=== PATIENT | female | born 1990 | race African-American/Black ===

== ENCOUNTER 2020-09-23 00:34 | Emergency (ER) | payer OTHER ==
[~2020-09-23] VITALS: Ht 167.6 cm; Wt 114.0 kg
[2020-09-23] MEDS ORDERED: KETOROLAC 30MG/ML VIAL IM ONE (01:00)
[2020-09-23 01:26] VITALS: BP 127/83
== END 2020-09-23 02:49 | disposition left against medical advice (07) ==
LOC: ER 00:34
DX: S80.12XA Contusion of left lower leg, initial encounter (principal); S80.11XA Contusion of right lower leg, initial encounter; M79.632 Pain in left forearm; M25.561 Pain in right knee; V49.59XA Passenger injured in collision with other motor vehicles in traffic accident, initial encounter; Y93.89 Activity, other specified; Y92.488 Other paved roadways as the place of occurrence of the external cause; R03.0 Elevated blood-pressure reading, without diagnosis of hypertension
CPT/HCPCS: 73090; 73564; 73590; 81025; 99284

== ENCOUNTER 2020-09-26 11:54 | Emergency (ER) | payer MEDICAID, OTHER ==
[~2020-09-26] VITALS: Ht 162.6 cm; Wt 105.0 kg
[2020-09-26 12:02] VITALS: BP 150/94
== END 2020-09-26 12:39 | disposition home or self-care (01) ==
LOC: ER 11:54
DX: S80.01XA Contusion of right knee, initial encounter (principal); V49.59XA Passenger injured in collision with other motor vehicles in traffic accident, initial encounter; Y93.89 Activity, other specified; Y92.488 Other paved roadways as the place of occurrence of the external cause; R03.0 Elevated blood-pressure reading, without diagnosis of hypertension
CPT/HCPCS: 99281

== ENCOUNTER 2020-10-23 08:29 | Emergency (ER) | payer MEDICAID, OTHER ==
[~2020-10-23] VITALS: Ht 165.1 cm; Wt 109.0 kg
[2020-10-23 08:31] VITALS: BP 159/87
== END 2020-10-23 10:18 | disposition home or self-care (01) ==
LOC: ER 08:29
DX: M25.461 Effusion, right knee (principal); Z87.828 Personal history of other (healed) physical injury and trauma
CPT/HCPCS: 73562; 81025; 99283